=== PATIENT | female | born 1960 | race Caucasian/White ===

== ENCOUNTER 2016-12-31 09:03 | Day surgery (SDC) | payer OTHER ==
[~2016-12-31] VITALS: Ht 165.1 cm; Wt 76.4 kg
[~2016-12-31 09:03] MED LIST: AMIT25TA9 PO; AMLO-512 PO; ASPI-1093 PO; GABA-531 PO; IBUP-1681 PO; ISOS30TA6 PO; METF500T7 PO; METOPROLOL SUCCINATE 50 MG ER TABLET PO ONE; MOME13HF2 IH; NITR.4 SL; OMEP20 PO; SUCR1TAB PO
[2016-12-31] MEDS ORDERED: 0.9% SODIUM CHLORIDE 10 ML SYRINGE IVP ONE ×3 (09:21→12:28)
[2016-12-31 10:07] LABS: GLUCOSE,POINT OF CARE 125 MG/DL (70-110)
[2016-12-31 10:09] LABS: ANION GAP 6 mmol/L (8-16); CALCIUM, TOTAL 8.6 mg/dL (8.8-10.5); CARBON DIOXIDE 31 mmol/L (22-29); CHLORIDE 104 mmol/L (98-107); CREATININE 0.56 mg/dL (0.60-1.30); GLOMERULAR FILTR. RATE CALC > 60 mL/min (>60); POTASSIUM 3.7 mmol/L (3.5-5.1); SODIUM SERUM 141 mmol/L (136-145); UREA NITROGEN, BLOOD 10 mg/dL (7-18)
[2016-12-31] MEDS ORDERED: SODIUM CHLORIDE 0.9% 100 ML ONE (10:34)
[2016-12-31] MEDS ORDERED: IOVERSOL 350 MG/ML 150 ML VIAL ONE (10:34)
[2016-12-31] MEDS: METOPROLOL TARTRATE 5 MG/5 ML VIAL IVP PRN ×2 (11:40→12:30)
[2016-12-31] MEDS ORDERED: METOPROLOL TARTRATE 5 MG/5 ML VIAL ONE ×2 (12:28→15:34)
[2016-12-31] MEDS ORDERED: NITROGLYCERIN 400 MCG/SUBLINGUAL SPRAY 4.9 GM BOTTLE SL ONE (15:34)
== END 2016-12-31 17:40 | disposition home or self-care (01) ==
LOC: SDS 09:03 → EDSTATUS 11:00 → SDS 17:40
PROVIDERS: ATTEND Internal Medicine Cardiovascular Disease
DX: I25.119 Atherosclerotic heart disease of native coronary artery with unspecified angina pectoris (principal); E11.9 Type 2 diabetes mellitus without complications; I10 Essential (primary) hypertension; J45.909 Unspecified asthma, uncomplicated; M54.9 Dorsalgia, unspecified; M54.30 Sciatica, unspecified side; Z90.49 Acquired absence of other specified parts of digestive tract; Z98.890 Other specified postprocedural states; Z90.710 Acquired absence of both cervix and uterus; Z90.2 Acquired absence of lung [part of]; Z86.11 Personal history of tuberculosis; Z86.79 Personal history of other diseases of the circulatory system; Z86.19 Personal history of other infectious and parasitic diseases
CPT/HCPCS: 36415; 75574; 80048; 82962; 93005; J3490; J7050; Q9967

== ENCOUNTER 2018-09-04 05:40 | Day surgery (SDC) | payer OTHER ==
[~2018-09-04] VITALS: Ht 165.1 cm; Wt 78.2 kg
[~2018-09-04 05:40] MED LIST changes: -ASPI-1093 PO; +ASPI-1182 PO; -IBUP-1681 PO; +IBUP-2354 PO; -METOPROLOL SUCCINATE 50 MG ER TABLET PO ONE; +SODIUM CHLORIDE 0.9% 1,000 ML IV ONE
[2018-09-04] MEDS ORDERED: ALBUTEROL SULFATE 2.5 MG/0.5 ML NEB SOLUTION NEB ONE (05:41)
[2018-09-04] MEDS ORDERED: BENZOCAINE 20% 50 MCG/SPRAY 57 GM TP ONE (05:41)
[2018-09-04] MEDS ORDERED: LIDOCAINE 2% 5 ML JELLY TP ONE (05:41)
[2018-09-04] MEDS ORDERED: EPINEPHrine 1:1,000 [1 MG/ML] AMP IM ONE (05:41)
[2018-09-04] MEDS ORDERED: LIDOCAINE 4% 50 ML SOLUTION TP ONE (05:41)
[2018-09-04] MEDS ORDERED: SODIUM CHLORIDE 0.9% 1,000 ML IV ONE (06:30)
[2018-09-04 06:58] LABS: GLUCOMETER DEV NAME(LOC) SDS.; GLUCOSE,POINT OF CARE 114 MG/DL (70-110)
[2018-09-04] MEDS ORDERED: FentaNYL CITRATE-PF 100 MCG/2 ML VIAL ONE (07:20)
[2018-09-04] MEDS ORDERED: MIDAZOLAM HCL 2 MG/2 ML VIAL ONE (07:20)
[2018-09-04] MEDS ORDERED: MethylPREDNISolone SOD SUCC 125 MG/2 ML VIAL ONE (08:43)
[2018-09-04] MEDS ORDERED: MethylPREDNISolone SOD SUCC 125 MG/2 ML VIAL IVP ONE (08:45)
[2018-09-04] MEDS ORDERED: OXYGEN THERAPY IH SCH (20:00)
== END 2018-09-04 11:05 | disposition home or self-care (01) ==
LOC: SURGERY 05:40
PROVIDERS: ATTEND Internal Medicine Critical Care Medicine
DX: J38.4 Edema of larynx (principal); B37.0 Candidal stomatitis; Z98.890 Other specified postprocedural states
CPT/HCPCS: 31623; 31624; 71045; 82962; 87015; 87070; 87101; 87205; 87206; 87220; 88108; 88312; 93005; J0171; J2250; J2930; J3010; J7030

== ENCOUNTER 2018-09-28 08:30 | Day surgery (SDC) | payer OTHER ==
[~2018-09-28] VITALS: Ht 165.1 cm; Wt 78.2 kg
[~2018-09-28 08:30] MED LIST changes: +0.9% SODIUM CHLORIDE 10 ML SYRINGE IVP PRN; -AMLO-512 PO; -GABA-531 PO; -IBUP-2354 PO; -ISOS30TA6 PO; +LISI-662 PO; +METOPROLOL TARTRATE 50 MG TABLET PO ONE; +METOPROLOL TARTRATE 50 MG TABLET PO PRN; +MONT10TA21 PO; -SODIUM CHLORIDE 0.9% 1,000 ML IV ONE; -SUCR1TAB PO; +VERA240SR PO
[2018-09-28] MEDS ORDERED: METOPROLOL TARTRATE 50 MG TABLET ONE (09:20)
[2018-09-28 09:49] LABS: ANION GAP 7 mmol/L (8-16); CALCIUM, TOTAL 9.3 mg/dL (8.8-10.5); CARBON DIOXIDE 33 mmol/L (22-29); CHLORIDE 104 mmol/L (98-107); CREATININE 0.53 mg/dL (0.60-1.30); GLOMERULAR FILTR. RATE CALC > 60 mL/min (>60); GLUCOSE,RANDOM 103 mg/dL (70-110); POTASSIUM 3.6 mmol/L (3.5-5.1); SODIUM SERUM 144 mmol/L (136-145); UREA NITROGEN, BLOOD 8 mg/dL (7-18)
[2018-09-28] MEDS ORDERED: METOPROLOL TARTRATE 5 MG/5 ML VIAL IVP ONE ×3 (10:00→10:15)
== END 2018-09-28 10:45 | disposition home or self-care (01) ==
LOC: SURGERY 08:30
PROVIDERS: ATTEND Internal Medicine Cardiovascular Disease
DX: R07.9 Chest pain, unspecified (principal); Z53.8 Procedure and treatment not carried out for other reasons; I25.2 Old myocardial infarction; Z90.710 Acquired absence of both cervix and uterus; Z98.890 Other specified postprocedural states; K21.9 Gastro-esophageal reflux disease without esophagitis; Z79.82 Long term (current) use of aspirin; Z79.899 Other long term (current) drug therapy
CPT/HCPCS: 36415; 80048; 93005; J3490

== ENCOUNTER 2021-01-17 06:47 | Day surgery (SDC) | payer OTHER ==
[2021-01-16 12:01] LABS: COVID AG,FIA SOURCE NASOPHARYNGEAL
[~2021-01-17] VITALS: Ht 165.1 cm; Wt 83.2 kg
[~2021-01-17 06:47] MED LIST changes: -0.9% SODIUM CHLORIDE 10 ML SYRINGE IVP PRN; -ASPI-1182 PO; +ASPI-1444 PO; -LISI-662 PO; +LISI-894 PO; +METF-911 PO; -METF500T7 PO; -METOPROLOL TARTRATE 50 MG TABLET PO ONE; -METOPROLOL TARTRATE 50 MG TABLET PO PRN; +MONT-35 PO; -MONT10TA21 PO; -NITR.4 SL; +NITR0.4T52 SL; +SODIUM CHLORIDE 0.9% 1,000 ML IV ONE
[2021-01-17] MEDS ORDERED: SODIUM CHLORIDE 0.9% 1,000 ML ONE (06:51)
[2021-01-17 07:39] LABS: GLUCOMETER DEV NAME(LOC) SDS.; GLUCOSE,POINT OF CARE 110 MG/DL (70-110)
[2021-01-17] MEDS ORDERED: FentaNYL CITRATE PF 100 MCG/2 ML VIAL ONE (07:49)
[2021-01-17] MEDS ORDERED: MIDAZOLAM HCL 5 MG/ML VIAL ONE (07:49)
[2021-01-17] MEDS ORDERED: MethylPREDNISolone SOD SUCC 125 MG/2 ML VIAL IVP ONE ×2 (09:30)
[2021-01-17] MEDS ORDERED: MethylPREDNISolone SOD SUCC 125 MG/2 ML VIAL ONE (10:27)
[2021-01-17] MEDS ORDERED: OXYGEN THERAPY IH SCH ×2 (20:00)
== END 2021-01-17 12:57 | disposition home or self-care (01) ==
LOC: SURGERY 06:47
PROVIDERS: ATTEND Internal Medicine Critical Care Medicine
DX: J38.4 Edema of larynx (principal); K21.9 Gastro-esophageal reflux disease without esophagitis; J45.909 Unspecified asthma, uncomplicated; B37.0 Candidal stomatitis; E11.9 Type 2 diabetes mellitus without complications; Z90.49 Acquired absence of other specified parts of digestive tract; Z90.710 Acquired absence of both cervix and uterus; Z98.890 Other specified postprocedural states
CPT/HCPCS: 31623; 31624; 71045; 82962; 87015; 87070; 87101; 87206; 87220; 87426; 88108; 88184; 88185; 88312; 93005; C9803; J2250; J2930; J3010; J7030

== ENCOUNTER 2021-06-15 21:23 | Emergency (ER) | payer OTHER ==
[~2021-06-15] VITALS: Ht 165.1 cm; Wt 84.5 kg
[~2021-06-15 21:23] MED LIST changes: +AMIT25TA10 PO; -AMIT25TA9 PO; -SODIUM CHLORIDE 0.9% 1,000 ML IV ONE; -VERA240SR PO; +VERA240T96 PO
[2021-06-15] MEDS ORDERED: CHOL400T56 PO (22:14)
[2021-06-15] MEDS ORDERED: AMIT-92 PO (22:14)
[2021-06-15] MEDS ORDERED: PRAV40TA4 PO (22:14)
[2021-06-15] MEDS ORDERED: METO-558 PO (22:14)
[2021-06-15] MEDS ORDERED: HYDR10TA31 PO (22:14)
[2021-06-15] MEDS ORDERED: METO25XL PO (22:14)
[2021-06-16] MEDS ORDERED: ACETAMINOPHEN 500 MG TABLET PO ONE (00:45)
[2021-06-16 01:36] VITALS: BP 143/98
== END 2021-06-16 02:19 | disposition home or self-care (01) ==
LOC: EMS 21:31
DX: G44.209 Tension-type headache, unspecified, not intractable (principal); F43.0 Acute stress reaction; I10 Essential (primary) hypertension; E11.9 Type 2 diabetes mellitus without complications; J45.909 Unspecified asthma, uncomplicated; Z79.899 Other long term (current) drug therapy
CPT/HCPCS: 99283

== ENCOUNTER 2022-01-23 05:25 | Day surgery (SDC) | payer OTHER ==
[2022-01-22 11:32] LABS: COVID AG,FIA SOURCE NASAL SWAB
[~2022-01-23] VITALS: Ht 165.1 cm; Wt 75.0 kg
[~2022-01-23 05:25] MED LIST changes: +AMIT-92 PO; -AMIT25TA10 PO; -ASPI-1444 PO; +CHOL400T56 PO; +HYDR10TA31 PO; -METF-911 PO; +METO-558 PO; +METO25XL PO; -NITR0.4T52 SL; +PRAV40TA4 PO
[2022-01-23] MEDS ORDERED: LIDOCAINE 4% 50 ML SOLUTION TP ONE (05:26)
[2022-01-23] MEDS ORDERED: ALBUTEROL SULFATE 2.5 MG/0.5 ML NEB SOLUTION NEB ONE (05:26)
[2022-01-23] MEDS ORDERED: BENZOCAINE 20% 50 MCG/SPRAY 57 GM TP ONE (05:26)
[2022-01-23] MEDS ORDERED: LIDOCAINE 2% 11 ML JELLY TP ONE (05:26)
[2022-01-23] MEDS ORDERED: SODIUM CHLORIDE 0.9% 1,000 ML IV ONE (07:00)
[2022-01-23] MEDS ORDERED: SODIUM CHLORIDE 0.9% 1,000 ML ONE (07:01)
[2022-01-23 07:41] LABS: GLUCOMETER DEV NAME(LOC) SDS.; GLUCOSE,POINT OF CARE 126 MG/DL (70-110)
[2022-01-23] MEDS ORDERED: FentaNYL CITRATE PF 100 MCG/2 ML VIAL ONE (07:56)
[2022-01-23] MEDS ORDERED: MIDAZOLAM HCL 5 MG/ML VIAL ONE (07:57)
[2022-01-23] MEDS ORDERED: SODIUM CHLORIDE 0.9% 10 ML ONE (08:09)
[2022-01-23] MEDS ORDERED: MethylPREDNISolone SOD SUCC 125 MG/2 ML VIAL IVP ONE (09:00)
[2022-01-23] MEDS ORDERED: MethylPREDNISolone SOD SUCC 125 MG/2 ML VIAL ONE (09:08)
[2022-01-23] MEDS ORDERED: OXYGEN THERAPY IH SCH (20:00)
== END 2022-01-23 10:40 | disposition home or self-care (01) ==
LOC: SURGERY 05:25
PROVIDERS: ATTEND Internal Medicine Critical Care Medicine
DX: J38.4 Edema of larynx (principal); B37.0 Candidal stomatitis; J39.8 Other specified diseases of upper respiratory tract; K21.9 Gastro-esophageal reflux disease without esophagitis; E78.00 Pure hypercholesterolemia, unspecified; I25.2 Old myocardial infarction; Z90.710 Acquired absence of both cervix and uterus; Z90.49 Acquired absence of other specified parts of digestive tract; Z98.890 Other specified postprocedural states; Z79.899 Other long term (current) drug therapy; Z95.0 Presence of cardiac pacemaker
CPT/HCPCS: 87426; 31623; 88112; 82962; 87206; 87101; 87220; 87070; 88305; 88312; 31624; 71045; 87015; C9803; J3010; J2930; J2250; Q9967; J7030; J7613; Z7610